=== PATIENT | male | born 1975 | race Caucasian/White ===

== ENCOUNTER 2017-05-12 14:26 | Emergency (ER) | payer SELFPAY ==
[~2017-05-12] VITALS: Ht 170.2 cm; Wt 95.0 kg
[2017-05-12 15:46] LABS: PROTHROMBIN TIME 10.7 sec (9.4-11.6)
[2017-05-12 15:47] LABS: BASOPHILS % 0.3 % (0.0-2.0); EOSINOPHILS % 0.2 % (0.0-5.0); HEMATOCRIT. 47.8 % (42.0-52.0); HEMOGLOBIN. 16.2 g/dL (14.0-18.0); LYMPHOCYTES % 8.4 % (20.0-50.0); MEAN CORPUSCULAR HEMOGLOBIN 30.1 pg (28.0-32.0); MEAN CORPUSCULAR VOLUME 88.8 fL (80.0-94.0); MEAN PLATELET VOLUME 8.7 fl (7.4-10.4); MONOCYTES % 3.8 % (2.0-8.0); NEUTROPHILS % 87.3 % (40.0-76.0); PLATELET 234 x1000/uL (130-400); RED BLOOD CELL COUNT 5.38 mill/uL (4.7-6.1); RED CELL DISTRIBUTION WIDTH 13.5 % (11.6-14.6)
[2017-05-12 15:54] LABS: CHLORIDE 106 mEq/L (98-107); TROPONIN I < 0.02 ng/mL (0.00-0.04)
[2017-05-12 20:00] VITALS: BP 154/107
== END 2017-05-12 20:15 | disposition home or self-care (01) ==
LOC: ER 15:02
DX: R06.02 Shortness of breath (principal); R07.9 Chest pain, unspecified; R11.0 Nausea; I10 Essential (primary) hypertension
CPT/HCPCS: 36415; 80053; 83880; 84484; 85025; 85610; 93005; 99285